=== PATIENT | female | born 1960 | race Caucasian/White ===

== ENCOUNTER 2017-08-25 16:00 | Inpatient (IN) | payer BC ==
[~2017-08-25] VITALS: Ht 162.6 cm; Wt 56.0 kg
[2017-08-25] VITALS (13 sets, daily range): BP systolic 130–198; BP diastolic 88–116; PULSE 77–97; RESP 16–19; TEMP 97.6–98; O2SAT 97–100
[~2017-08-25 16:00] MED LIST: ATOR20TA42 PO; CETI5TAB2 PO; ESTR1TAB12 PO; LEVO.1 PO; TRIA3AER; ZANT150T2 PO
[2017-08-25] MEDS ORDERED: LEVO.1 PO (16:09)
[2017-08-25] MEDS ORDERED: CETI-1 PO (16:13)
[2017-08-25] MEDS ORDERED: HEPARIN SODIUM - IV 10,000 UNITS/10 ML VIAL IV PUSH STA (16:18)
[2017-08-25] MEDS ORDERED: FAMOTIDINE 20 MG/2 ML VIAL ONE (16:24)
[2017-08-25] MEDS ORDERED: NITROGLYCERIN INJ 5 ML ONE (16:24)
[2017-08-25] MEDS ORDERED: HYDROCORTISONE SOD SUCCINATE 100 MG VIAL ONE (16:24)
[2017-08-25] MEDS ORDERED: HEPARIN SODIUM - IV 10,000 UNITS/10 ML VIAL ONE (16:24)
[2017-08-25] MEDS ORDERED: MIDAZOLAM HCL 2 MG/2 ML VIAL ONE (16:24)
[2017-08-25] MEDS ORDERED: HEPARIN-NS/PF FLUSH BAG 2,000 ML IV FLUSH ONE (16:24)
[2017-08-25] MEDS ORDERED: diphenhydrAMINE HCL 50 MG/ML VIAL ONE (16:24)
--- NOTE | 2017-08-25 16:25 | PD ---
HPI Chief Complaint: Cardiac Time Seen by Provider: 16:20 Travel History International Travel<30 days: No Contact w/Intl Traveler<30days: No Traveled to known affect area: No History of Present Illness HPI 51 cc of female complains of chest pain. Patient states the pain started about 2 hours prior to arrival. Patient states that she had intermittent left-sided chest pain for the past week. Patient states the chest pain used to last about 15 minutes and then resolved completely. Patient states of chest pain associated with exertion. Patient denies history hypertension diabetes. Patient has a history of hyperlipidemia.. Patient is a non-smoker. Patient has family history of heart disease. On a scale from 1-10 the pain is an 8. Patient states pain is a pressure pain substernal and left-sided chest with radiation to left arm left shoulder. Patient states that she had nausea with the chest pain. Patient denies any diaphoresis. PFSH Past Medical History Arthritis: No Asthma: No Autoimmune Disease: No Blood Disorders: No Cancer: No Cardiovascular Problems: No COPD: No Cerebrovascular Accident: No Diabetes: No Endocrine: Yes GERD: Yes Genitourinary: No Headaches: No Hepatitis: No Hiatal Hernia: No Immune Disorder: No Musculoskeletal: No Neurologic: No Psychiatric: No Reproductive: Yes (OVARIAN CYST, RIGHT & ADHESIONS ) Respiratory: No Seizures: No Sleep Apnea: No Thyroid Disease: Yes ( HYPOTHYROID ) Ulcer: No Past Surgical History Abdominal Surgery: Yes (LAP CHOLECY) AICD: No Body Medical Devices: NONE Cardiac Surgery: No Ear Surgery: No Endocrine Surgery: No Eye Surgery: No Genitourinary Surgery: No Gynecologic Surgery: Yes (C SECTION X 1, UTERUS REMOVED) Joint Replacement: No Oral Surgery: No Pacemaker: No Thoracic Surgery: No Social History Alcohol Use: No Tobacco Use: Yes (one pack a day) Substance Use: No Allergies-Medications (Allergen,Severity, Reaction): Coded Allergies: shellfish derived (Verified Allergy, Severe, HIVES, 08/25/17) Sulfa (Sulfonamide Antibiotics) (Verified Allergy, Intermediate, Rash, ) FEVER/VOMITTING nitrofurantoin (Verified Allergy, Intermediate, HIVES, 08/25/17) onion (Verified Allergy, Intermediate, HIVES, 08/25/17) Reported Meds & Prescriptions Reported Meds & Active Scripts Active Reported Zyrtec (Cetirizine HCl) 10 Mg Tablet 10 Mg PO HS Synthroid (Levothyroxine Sodium) 100 Mcg Tab 100 Mcg PO DAILY Review of Systems General / Constitutional: No: Fever Eyes: No: Visual changes HENT: No: Headaches Cardiovascular: Positive: Chest Pain or Discomfort Respiratory: No: Shortness of Breath Gastrointestinal: No: Abdominal Pain Genitourinary: No: Dysuria Musculoskeletal: No: Pain Skin: No Rash Neurologic: No: Weakness Psychiatric: No: Depression Endocrine: No: Polydipsia Hematologic/Lymphatic: No: Easy Bruising Physical Exam Narrative GENERAL: Well-nourished, well-developed patient. SKIN: Focused skin assessment warm/dry. HEAD: Normocephalic. EYES: No scleral icterus. No injection or drainage. NECK: Supple, trachea midline. No JVD or lymphadenopathy. CARDIOVASCULAR: Regular rate and rhythm without murmurs, gallops, or rubs. RESPIRATORY: Breath sounds equal bilaterally. No accessory muscle use. GASTROINTESTINAL: Abdomen soft, non-tender, nondistended. MUSCULOSKELETAL: No cyanosis, or edema. BACK: Nontender without obvious deformity. No CVA tenderness. Neurologic exam normal. Data Data Orders Orders Electrocardiogram (08/25/17 ) Electrocardiogram (08/25/17 16:16) Basic Metabolic Panel (Bmp) (08/25/17 16:16) Ckmb (Isoenzyme) Profile (08/25/17 16:16) Complete Blood Count With Diff (08/25/17 16:16) Magnesium (Mg) (08/25/17 16:16) Prothrombin Time / Inr (Pt) (08/25/17 16:16) Act Partial Throm Time (Ptt) (08/25/17 16:16) Troponin I (08/25/17 16:16) Chest, Single Ap (08/25/17 16:16) Ecg Monitoring (08/25/17 16:16) Bilateral Bp Monitoring (08/25/17 16:16) Iv Access Insert/Monitor (08/25/17 16:16) Oximetry (08/25/17 16:16) Oxygen Administration (08/25/17 16:16) Aspirin Chew (Aspirin Chew) (08/25/17 16:30) Sodium Chloride 0.9% Flush (Ns Flush) (08/25/17 16:30) Nitroglycerin Sl (Nitrostat Sl) (08/25/17 16:30) [facility] Medical Decision Making Medical Screen Exam Complete: Yes Emergency Medical Condition: Yes Interpretation(s) EKG shows sinus rhythm with ST elevation anterior lateral leads. ST depression in inferior leads. Differential Diagnosis Differential diagnosis including STEMI. Narrative Course 57 years old female with chest pain. EKG typical STEMI. STEMI was called. I spoke with Dr. Ray. Patient will be taken to Patient Intake Representative immediately. Heparin bolus given. Aspirin given. Nitropaste given. Diagnosis Primary Impression: STEMI (ST elevation myocardial infarction) Qualified Codes: I21.02 - ST elevation (STEMI) myocardial infarction involving left anterior descending coronary artery Admitting Information Admitting Physician Requests: Admit Terence Mendoza MD Aug 25, 2017 16:25
--- NOTE | 2017-08-25 16:25 | PD ---
HPI Chief Complaint: Chest pain Time Seen by Provider: 16:08 Travel History International Travel<30 days: No Contact w/Intl Traveler<30days: No Traveled to known affect area: No History of Present Illness HPI 57-year-old female smoker with history of hypothyroidism hyperlipidemia presents for evaluation of chest pain. Symptoms have been intermittent for the past week. Initially she thought that the symptoms were secondary to stress related to her mother recently having a TIA. Symptoms typically last 15 minutes at a time and then resolved. She has had more consistent pain since 2: 30 PM today which prompted evaluation. She describes it as a substernal burning sensation which radiates in the left arm with associated nausea, vomiting. She denies cough, congestion, shortness of breath, abdominal pain, recent illness. No known history of coronary artery disease. Primary care physician is Dr. Sharif Spicer. No other complaints. PFSH Past Medical History Arthritis: No Asthma: No Autoimmune Disease: No Blood Disorders: No Cancer: No Cardiovascular Problems: No COPD: No Cerebrovascular Accident: No Diabetes: No Endocrine: Yes GERD: Yes Genitourinary: No Headaches: No Hepatitis: No Hiatal Hernia: No Immune Disorder: No Musculoskeletal: No Neurologic: No Psychiatric: No Reproductive: Yes (OVARIAN CYST, RIGHT & ADHESIONS ) Respiratory: No Seizures: No Sleep Apnea: No Thyroid Disease: Yes ( HYPOTHYROID ) Ulcer: No Past Surgical History Abdominal Surgery: Yes (LAP CHOLECY) AICD: No Body Medical Devices: NONE Cardiac Surgery: No Ear Surgery: No Endocrine Surgery: No Eye Surgery: No Genitourinary Surgery: No Gynecologic Surgery: Yes (C SECTION X 1, UTERUS REMOVED) Joint Replacement: No Oral Surgery: No Pacemaker: No Thoracic Surgery: No Social History Alcohol Use: No Tobacco Use: Yes (one pack a day) Substance Use: No Allergies-Medications (Allergen,Severity, Reaction): Coded Allergies: Sulfa (Sulfonamide Antibiotics) (Verified Allergy, Intermediate, Rash, ) FEVER/VOMITTING nitrofurantoin (Verified Allergy, Intermediate, HIVES, 08/25/17) onion (Verified Allergy, Intermediate, HIVES, 08/25/17) Reported Meds & Prescriptions Reported Meds & Active Scripts Active Reported Zyrtec (Cetirizine HCl) 10 Mg Tablet 10 Mg PO HS Synthroid (Levothyroxine Sodium) 100 Mcg Tab 100 Mcg PO DAILY Review of Systems Except as stated in HPI: all other systems reviewed are Neg Physical Exam Narrative GENERAL: This is a well-developed well-nourished female who appears anxious. She is hypertensive. SKIN: Warm and dry. HEAD: Atraumatic. Normocephalic. EYES: Pupils equal and round. No scleral icterus. No injection or drainage. ENT: No nasal bleeding or discharge. Mucous membranes pink and moist. NECK: Trachea midline. No JVD. CARDIOVASCULAR: Regular rate and rhythm. No murmur appreciated. RESPIRATORY: No accessory muscle use. Clear to auscultation. Breath sounds equal bilaterally. GASTROINTESTINAL: Abdomen soft, non-tender, nondistended. Hepatic and splenic margins not palpable. MUSCULOSKELETAL: No obvious deformities. No clubbing. No cyanosis. No edema. NEUROLOGICAL: Awake and alert. No obvious cranial nerve deficits. Motor grossly within normal limits. Normal speech. PSYCHIATRIC: Appropriate mood and affect; insight and judgment normal. Data Data Last Documented VS Vital Signs Date Time Temp Pulse Resp B/P (MAP) Pulse Ox O2 Delivery O2 Flow Rate FiO2 08/25/17 16:26 100 2.00 08/25/17 16:17 96 18 187/113 (137) Nasal Cannula 198/116 (143) 08/25/17 16:07 97.8 Orders Orders Electrocardiogram (08/25/17 ) Electrocardiogram (08/25/17 16:16) Basic Metabolic Panel (Bmp) (08/25/17 16:16) Ckmb (Isoenzyme) Profile (08/25/17 16:16) Complete Blood Count With Diff (08/25/17 16:16) Magnesium (Mg) (08/25/17 16:16) Prothrombin Time / Inr (Pt) (08/25/17 16:16) Act Partial Throm Time (Ptt) (08/25/17 16:16) Troponin I (08/25/17 16:16) Chest, Single Ap (08/25/17 16:16) Ecg Monitoring (08/25/17 16:16) Bilateral Bp Monitoring (08/25/17 16:16) Iv Access Insert/Monitor (08/25/17 16:16) Oximetry (08/25/17 16:16) Oxygen Administration (08/25/17 16:16) Aspirin Chew (Aspirin Chew) (08/25/17 16:30) Sodium Chloride 0.9% Flush (Ns Flush) (08/25/17 16:30) Nitroglycerin Sl (Nitrostat Sl) (08/25/17 16:30) I-Stat Profile (08/25/17 16:18) I-Stat Creatinine (08/25/17 16:18) Metoprolol Tartrate Inj (Lopressor Inj) (08/25/17 16:30) Morphine Inj (Morphine Inj) (08/25/17 16:30) Heparin Inj (Heparin Inj) (08/25/17 16:18) Nitroglycerin 2% Oint (Nitroglycerin 2% (08/25/17 16:30) Cardiac Catheterization (08/25/17 ) Heparin-Ns/Pf Flush Bag (Heparin-Ns/Pf F (08/25/17 16:24) Diphenhydramine Inj (Benadryl Inj) (08/25/17 16:24) Midazolam Inj (Versed Inj) (08/25/17 16:24) Fentanyl Inj (Fentanyl Inj) (08/25/17 16:24) Hydrocortisone Inj (Solucortef Inj) (08/25/17 16:24) Heparin Inj (Heparin Inj) (08/25/17 16:24) Nitroglycerin Inj (Nitroglycerin Inj) (08/25/17 16:24) Famotidine Inj (Pepcid Inj) (08/25/17 16:24) Admit Order (Ed Use Only) (08/25/17 16:25) CKMB (08/25/17 16:20) CKMB% (08/25/17 16:20) Labs Laboratory Tests Test 08/25/17 16:20 White Blood Count 10.0 TH/MM3 Red Blood Count 4.77 MIL/MM3 Hemoglobin 14.2 GM/DL Bedside Hemoglobin 13.3 G/DL Hematocrit 41.5 % Bedside Hematocrit 39.0 % Mean Corpuscular Volume 87.0 FL Mean Corpuscular Hemoglobin 29.7 PG Mean Corpuscular Hemoglobin Concent 34.1 % Red Cell Distribution Width 12.7 % Platelet Count 313 TH/MM3 Mean Platelet Volume 8.2 FL Neutrophils (%) (Auto) 58.2 % Lymphocytes (%) (Auto) 30.1 % Monocytes (%) (Auto) 8.3 % Eosinophils (%) (Auto) 3.1 % Basophils (%) (Auto) 0.3 % Neutrophils # (Auto) 5.8 TH/MM3 Lymphocytes # (Auto) 3.0 TH/MM3 Monocytes # (Auto) 0.8 TH/MM3 Eosinophils # (Auto) 0.3 TH/MM3 Basophils # (Auto) 0.0 TH/MM3 CBC Comment DIFF FINAL Differential Comment Prothrombin Time 10.7 SEC Prothromb Time International Ratio 1.1 RATIO Activated Partial Thromboplast Time 24.3 SEC Bedside Sodium 137 MMOL/L Blood Urea Nitrogen 10 MG/DL Creatinine 0.93 MG/DL Random Glucose 160 MG/DL Calcium Level 9.3 MG/DL Magnesium Level 2.4 MG/DL Sodium Level 138 MEQ/L Potassium Level 3.3 MEQ/L Chloride Level 106 MEQ/L Carbon Dioxide Level 20.6 MEQ/L Bedside Potassium 3.3 MMOL/L Bedside Chloride 105 MMOL/L Anion Gap 11 MEQ/L Bedside Blood Urea Nitrogen 11 MG/DL Bedside Creatinine 0.9 MG/DL Estimat Glomerular Filtration Rate 62 ML/MIN Bedside Glucose 163 MG/DL Total Creatine Kinase 136 U/L Creatine Kinase MB 4.3 NG/ML Troponin I 0.28 NG/ML [facility] Medical Decision Making Medical Screen Exam Complete: Yes Emergency Medical Condition: Yes Medical Record Reviewed: Yes Differential Diagnosis Acute coronary syndrome, angina, gastritis, pericarditis, myocarditis, aortic dissection, pulmonary embolism Narrative Course Patient was placed on ECG monitoring pulse oximetry. A 12-lead EKG was obtained revealing sinus rhythm with ST elevations in V1 through V5 with ST depression noted in leads III and aVF. STEMI alert was called by Dr. Mendoza. The patient was given 60 mg/kg heparin bolus, full dose aspirin, morphine, nitroglycerin paste, metoprolol for hypertension. Dr. Mendoza spoke with Dr. Rich who will take the patient to Managing Supervisor. Diagnosis Primary Impression: STEMI (ST elevation myocardial infarction) Admitting Information Admitting Physician Requests: Admit Harsh Mnedoza Aug 25, 2017 16:25
[2017-08-25] MEDS: METOPROLOL TARTRATE 5 MG/5 ML VIAL IV PUSH SCH ×3 (16:27→16:40)
[2017-08-25] MEDS ORDERED: LIDOCAINE HCL 1% PF 30 ML VIAL ONE (16:29)
[2017-08-25] MEDS ORDERED: SODIUM CHLORIDE 0.9% FLUSH 10 ML FLUSH IVF PRN (16:30)
[2017-08-25] MEDS ORDERED: NITROGLYCERIN 2% OINT 1 GM PACKET TOP ONE (16:30)
[2017-08-25] MEDS ORDERED: NITROGLYCERIN 0.4 MG SL 25 TABS/BTL SL SCH (16:30)
[2017-08-25] MEDS ORDERED: ASPIRIN 81 MG CHEW TAB PO ONE (16:30)
[2017-08-25] MEDS ORDERED: MORPHINE SULFATE 4 MG/ML INJ IV PUSH ONE (16:30)
[2017-08-25] MEDS ORDERED: CANGRELOR TETRASODIUM 50,000 MCG VIAL ONE (16:38)
--- NOTE | 2017-08-25 16:39 | RADRPT ---
EXAM DATE/TIME: 08/25/2017 16:22 [facility] COMPARISON: No previous studies available for comparison. INDICATIONS : Stemi alert.Chest pain, left arm numbness MEDICAL HISTORY : None. SURGICAL HISTORY : None. ENCOUNTER: Initial ACUITY: 1 day PAIN SCORE: 10/10 LOCATION: Bilateral chest FINDINGS: The heart is normal in size and appearance. The pulmonary vascular pattern is normal. Left basilar st reakiness is noted consistent with probable atelectasis. CONCLUSION: Probable left basilar atelectasis. Sunny Delatorre MD on August 25, 2017 at 16:35 Board Certified Radiologist. This report was verified electronically.
[2017-08-25 16:42] LABS: AUTOMATED NEUTROPHIL # 5.8 TH/MM3 (1.8-7.7); BASOPHIL % 0.3 % (0.0-2.0); EOSINOPHIL # 0.3 TH/MM3 (0-0.4); EOSINOPHIL % 3.1 % (0.0-4.0); HEMATOCRIT 41.5 % (35.0-46.0); HEMOGLOBIN 14.2 GM/DL (11.6-15.3); LYMPH % 30.1 % (9.0-44.0); MEAN CORPUSCULAR HEMOGLOBIN 29.7 PG (27.0-34.0); MEAN CORPUSCULAR HGB CONC 34.1 % (32.0-36.0); MEAN PLATELET VOLUME 8.2 FL (7.0-11.0); MONO % 8.3 % (0.0-8.0); MONOCYTE # 0.8 TH/MM3 (0-0.9); NEUT % 58.2 % (16.0-70.0); PLATELET COUNT 313 TH/MM3 (150-450); RED BLOOD COUNT 4.77 MIL/MM3 (4.00-5.30); RED CELL DISTRIBUTION WIDTH 12.7 % (11.6-17.2)
[2017-08-25 16:56] LABS: INTERNATIONAL NORMALIZED RATIO 1.1 RATIO; PROTHROMBIN TIME - PATIENT 10.7 SEC (9.8-11.6)
[2017-08-25] MEDS ORDERED: TICAGRELOR 90 MG TAB PO ONE (16:59)
[2017-08-25 17:09] LABS: BICARBONATE 20.6 MEQ/L (21.0-32.0); BLOOD UREA NITROGEN 10 MG/DL (7-18); CALCIUM 9.3 MG/DL (8.5-10.1); CHLORIDE 106 MEQ/L (98-107); CREATININE 0.93 MG/DL (0.50-1.00); GLOMERULAR FILTRATION RATE 62 ML/MIN (>89); GLUCOSE,RANDOM 160 MG/DL (74-106); MAGNESIUM 2.4 MG/DL (1.5-2.5); SODIUM (NA) 138 MEQ/L (136-145); TROPONIN I 0.28 NG/ML (0.02-0.05)
--- NOTE | 2017-08-25 17:11 | CATHPROC ---
[employer] HIS Report Study Information Study Number Admission Scheduled Start Study Start [id number] Aug 25 2017 4:00PM 08/25/2017 Aug 25 2017 4:25PM [place] [facility] Cardiac Catheterization Admit Source Facility Department Emergency department [facility] - Blind Teacher Physician and Clinical Staff Initial Elvis Rai Nurse ExaminerLarisa Cid,[place] Nurse Examiner All Casas RN Other Hesher, Sharon,[place] Recorder Alexa Murphy,RT(R) Scrub Ryan JamisonRT(R) Procedures Performed Procedure Location (Site) Vessel Name Coronary Angiograms LCA Left Coronary Coronary Angiograms RCA Right Coronary Coronary Angiograms LAD Mid Left Coronary Drug Eluting Inflatio LAD Mid Left Coronary Drug Eluting Inflatio LAD Prox Left Coronary PTCA LAD Mid Left Coronary PTCA ADD ON'S Wire insertion Radial (right) Radial Art. Equipment Time Cloud Security Architect Description Size Mfg Part Number Used/Scraped TRANSDUCER, TRUWAVE [id number] 16:28 CAZARES ALEXANDER * Used W/STOCKCOCK *[id number] [phone] *[id number] *[id number] 16:28 [employer]cat INDUSTRIES PACK, CCL CUSTOM * Used *[id number] 16:28 Jascha SUPPORT, ARTERIAL ADULT [id number] *[id number] Used [id number] 16:28 [employer]cat PACER PEN, SKIN DUAL W/ RULER * Used *[id number] 16:45 MEDTRONIC BALLOON, 2.0 X 15MM EUPHORA 15MM Used *[id number] 16:48 MEDTRONIC BALLOON, 2.0 X 15MM EUPHORA 15MM Used *[id number] 16:56 MEDTRONIC STENT, 2.5 18MM NELSON 2.5 18MM Used *[id number] 16:53 MEDTRONIC STENT, 2.5 38MM NELSON 2.5 38MM [id number] Used [id number] 16:47 [employer] MEDICAL 30 JUSTO INDEFLATOR Used *[id number] BAND, RADIAL COMPRESSION TR [id number] 17:00 [employer] MEDICAL 24CM Used SHORT 24 *[id number] SHEATH, FR6 RADIAL PRELUDE 16:28 upad FR 6 [id number] Used EASE 11CM [id number] 16:28 upad WIRE, EXCHANGE 260CM 3MMJ 260CM Used *[id number] 16:48 NYCOMED OMNIPAQUE, 300 MG, 50ML 50ML [id number] Used 16:28 NYCOMED OMNIPAQUE, 350 MG, 150ML 150ML [id number] Used [id number] 16:28 [employer],WARM AIR CCL * Used *[id number] WIRE, RUNTHROUGH NS FLOPPY [id number] 16:48 [employer] MEDICAL 180CM Used .014 180CM *[id number] Equipment Model, Serial, Lot Number and Expiration Data Description Model Number Serial Number Lot Number Expiration Date BALLOON, 2.0 X 15MM EUPHORA [id number] 09-07-2018 STENT, 2.5 18MM NELSON [id number] 03-22-2019 STENT, 2.5 38MM NELSON [id number] 06-09-2019 History: Current Medications Medication Dosage/Unit Route Frequency Last Date/Time Taken HEPARIN ASA BRILLINTA History: Allergies Allergy Reaction Sulfa (Sulfonamide Antibiotics) Rash nitrofurantoin HIVES onion HIVES shellfish derived HIVES History: Risk Factors Family History of Hypertension Dyslipidemia Previous [place] Previous Heart Failure Premature CAD Yes No No No No Prior Valve Prior PCI Prior CABG Surgery No No No Cerebrovascular Peripheral Artery Chronic Lung On Dialysis Diabetes Disease Disease Disease No No No No No History: Symptoms/Diagnosis Selection Items Chest pain History: Stress Tests Stress or Imaging Studies Performed No History: Other Disease Selection Items HTN History: Other Current Smoker Method Yes Cigarettes Labs Hgb (g/dl) Hct (%) 11.60-17.00 35.00-51.00 13.3 39 Glucose (mg/dl) BUN (mg/dl) Creatinine (mg/dl) BUN:Creatinine (1:x) 74.00-106.00 7.00-18.00 0.50-1.30 10.00-20.00 164 11 0.9 12.2 Na (meq/l) K (meq/l) 136.00-145.00 3.50-5.10 137 3.3 CPK-MB (ng/ML) 0.50-3.60 Not Drawn Medication Medication Total Dose (Bolus/Oral) Medication Total Dosage/Unit 1% XYLOCAINE 20 mL BENADRYL 50 mg BRILLINTA 180 mg FENTANYL 50 mcg HEPARIN 2000 units PEPCID 20 mg RADIAL COCKTAIL 5 mL (Bolus) SOLU-CORTEF 100 mg VERSED 2 mg Medications (Bolus/Oral) Medication Time Given Dosage/Unit Administered By Reason BENADRYL 08/25/2017 4:35:40 PM 50 mg Yessenia, All 50 mg BENADRYL given in lab by All Casas RN in Left Wrist via Peripheral IV. PEPCID 08/25/2017 4:36:00 PM 20 mg Alexa Cooper 20 mg PEPCID given in lab by Alexa Cooper RN via Peripheral IV. SOLU-CORTEF 08/25/2017 4:37:00 PM 100 mg Alexa Cooper 100 mg SOLU-CORTEF given in lab by Alexa Cooper RN via Peripheral IV. VERSED 08/25/2017 4:40:46 PM 2 mg Yessenia, All 2 mg VERSED given in lab by All Casas RN via Peripheral IV. 1% XYLOCAINE 08/25/2017 4:41:24 PM 20 mL Yessenia, All 20 mL 1% XYLOCAINE given in lab by All Casas RN in Right Groin via Subcutaneous. FENTANYL 08/25/2017 4:41:52 PM 50 mcg Yessenia, All 50 mcg FENTANYL given in lab by All Casas RN via Peripheral IV. HEPARIN 08/25/2017 4:42:51 PM 2000 units Alexa Cooper 2000 units HEPARIN given in lab by Alexa Cooper RN via Peripheral IV. RADIAL COCKTAIL 08/25/2017 4:43:05 PM 5 mL (Bolus) Elvis Rich 5 mL (Bolus) RADIAL COCKTAIL given in lab by Elvis Rich via Radial. Using [Solution Name]. nitro 200 BRILLINTA 08/25/2017 5:05:15 PM 180 mg Alexa Cooper 180 mg BRILLINTA given in lab by Alexa Cooper RN in Per mouth via Oral. Medication (Drip) Medication Time Given Dosage/Unit Concentration/Unit Diluent (ml) Solutio n IV Solutions 08/25/2017 4:35:07 PM 0 mL (IV) 1000 NaCl .9 Patient arrived on IV Solutions in Left Wrist via Peripheral IV. Pump/Drip Flow = 30 ml/hr using NaCl .9. KENGREAL BOLUS 08/25/2017 4:48:00 PM 8 mL 8 mL KENGREAL BOLUS given in lab by Alexa Cooper, RN via Peripheral IV. KENGREAL DRIP 08/25/2017 4:50:55 PM 4 mcg/kg/min 50 mg 250 NaCl .9 4 mcg/kg/min KENGREAL DRIP given in lab by Alexa Cooper, RN via Peripheral IV. Pump/Drip Flow = 70. 8 ml/hr using NaCl .9 with a concentration of 50 mg in 250 ml. Initial Case Assessment Cardiovascular HR Rhythm NIBP 84 reg 202/130 Edema Present Skin color Skin None Normal Warm Circulatory - Right Pulses Dorsalis Pedis Femoral Radial 2 3 2 Scale (0,1,2,3,4,d) Scale (0,1,2,3,4,d) Circulatory - Lower Extremities Color Lower Right Normal Neurological State Oriented to time-place- Alert Moves all extremities person Respiration - General Respiration Rate SpO2 (%) O2 (lpm) (B/min) 14 100 2 Final Case Assessment Cardiovascular HR Rhythm NIBP Chest Pain 105 reg 156/103 0 Edema Present Skin color Skin None Normal Warm Circulatory - Right Pulses Dorsalis Pedis Femoral Radial 2 2 2 Scale (0,1,2,3,4,d) Scale (0,1,2,3,4,d) Circulatory - Lower Extremities Color Lower Right Normal Neurological State Oriented to time-place- Alert Moves all extremities person Respiration - General Respiration Rate SpO2 (%) O2 (lpm) (B/min) 15 100 2 Chronological Log Time Study Chronological Log 16:21:30 Emergency Room notified that Blind Teacher is ready. Alexa Murphy spoke directly to Dr Mendoza. 16:34:17 Patient arrived via Bed. 16:34:20 Patient Name, D.O.B, / Armband Verified By R.N. 16:34:21 Consent signed by the physician and the patient and verified by the Blind Teacher staff. 16:34:40 Pre-op and post- op instructions given; patient acknowledges understanding of instructions. 16:34:41 Verbal Stimulation=2 Physical Stimulation=2 Airway=2 Respiration=2 TOTAL=8. (0=absent, 1=li mited, 2=present) 16:34:53 Immediate Presedation assesment performed by physician. 16:35:02 Patient Warmer Placed on the Table. 16:35:03 Disposable Defibrillator Pads Placed On Patient. 16:35:06 Karthik Prominences Protected 16:35:07 A # 20 IV was noted in the Wrist (left). Grade = 0 16:35:07 Patient arrived on IV Solutions in Left Wrist via Peripheral IV. Pump/Drip Flow = 30 ml/hr using NaCl .9. 16:35:08 History and physical on the chart or being dictated. Assessment: Initial Case, HR=84 BPM, Rhythm=reg, QWZO=389/130 mmhg, Edema=None, Color=Normal, S kin = Warm Right Pulses: Devon Ped=2, Femoral=3, Radial=2 16:35:08 Lower Right Extremities: Color=Normal Neurological: State=Alert, Ox3, AVALOS Respiration: Resp=14 B/min, ZxQ7=324 %, O2=2 lpm 16:35:40 50 mg BENADRYL given in lab by All Casas RN in Left Wrist via Peripheral IV. 16:36:00 20 mg PEPCID given in lab by Alexa Cooper RN via Peripheral IV. 16:36:44 A # 20 IV was noted in the Wrist (right). Grade = 0 16:37:00 100 mg SOLU-CORTEF given in lab by Alexa Cooper RN via Peripheral IV. Vitals capture started with the following parameters, Patient=Adult, Interval=5 min, Initial Pr nqbeod=622 mmHg, 16:38:52 Deflation Rate=5 mmHg, Cuff placed on Left Arm 16:39:08 Right Radial and right groin prepped with 2% chlorhexidine, and draped after a 3 min. waiti ng time. 16:40:09 HR=84 bpm, XNJM=224/130 mmhg, XfE7=418.0 %, Resp=23 B/min, Pain=7, Baljinder=10, Chavez=2 16:40:31 Reference ECG taken 16:40:46 2 mg VERSED given in lab by All Casas RN via Peripheral IV. 16:41:21 Case Start Time Out. Correct patient, correct procedure, correct physician, power injector loaded, or not loaded with contrast with 16:41:23 surgical team present. Time Out Concurred by MD and individual staff in procedure. 16:41:24 20 mL 1% XYLOCAINE given in lab by All Casas RN in Right Groin via Subcutaneous. 16:41:52 50 mcg FENTANYL given in lab by All Casas, RN via Peripheral IV. 16:42:14 Pressure channel 1 zeroed. 16:42:30 Access site was Radial Artery. 16:42:39 A wire was inserted via Radial (right). A SHEATH, FR6 RADIAL PRELUDE EASE 11CM FR 6 was advanced into the Radial (right) using the Perc utaneous 16:42:47 technique. 16:42:51 2000 units HEPARIN given in lab by Alexa Cooper, LOLA via Peripheral IV. 16:43:05 5 mL (Bolus) RADIAL COCKTAIL given in lab by Elvis Rich via Radial. Using [Solution Nam e]. nitro 200 A JR 5.0 INFINITI CATHETER FR 5 was advanced over a wire. OMNIPAQUE, 350 MG, 150ML 150ML was us ed for 16:44:24 injections. Recorded Pressure: Ao, HR=91, Condition=Condition 1 16:44:30 (Aorta) Ao 193/120/152 16:44:39 HR=89 bpm, CFAU=460/125 mmhg, SpO2=72.0 %, Resp=14 B/min, Pain=7, Baljinder=10, Chavez=2 16:44:45 The RCA was injected and visualized at various angles. OMNIPAQUE, 350 MG, 150ML 150ML used . 16:45:19 Catheter was removed 16:45:20 A AL 1 GUIDE CATHETER FR 6 was advanced over a wire. OMNIPAQUE, 350 MG, 150ML 150ML was use d for injections. 16:46:35 The LCA was injected and visualized at various angles. OMNIPAQUE, 350 MG, 150ML 150ML used . 16:47:23 OMNIPAQUE, 300 MG, 50ML 50ML and 30 JUSTO INDEFLATOR added. 16:47:42 A WIRE, RUNTHROUGH NS FLOPPY .014 180CM 180CM was inserted via Radial (right). 16:48:00 8 mL KENGREAL BOLUS given in lab by Alexa Cooper, LOLA via Peripheral IV. 16:48:15 Interventional wire has crossed the lesion A BALLOON, 2.0 X 15MM EUPHORA 15MM was inserted over WIRE, RUNTHROUGH NS FLOPPY .014 180CM 180C M via 16:48:26 the LAD Mid. A BALLOON, 2.0 X 15MM EUPHORA 15MM over a WIRE, RUNTHROUGH NS FLOPPY .014 180CM 180CM in the LA D Mid 16:48:44 was inflated using a 30 JUSTO INDEFLATOR at 8 justo for 15 sec. 16:49:17 reperfusion A BALLOON, 2.0 X 15MM EUPHORA 15MM over a WIRE, RUNTHROUGH NS FLOPPY .014 180CM 180CM in the LA D Mid 16:49:35 was inflated using a 30 JUSTO INDEFLATOR at 8 justo for 15 sec. 16:49:36 HR=99 bpm, HDIV=245/102 mmhg, SpO2=73.0 %, Resp=14 B/min, Pain=7, Baljinder=10, Chavez=2 16:50:10 The LCA was injected and visualized at various angles. OMNIPAQUE, 350 MG, 150ML 150ML used . 16:50:34 Balloon Removed. 4 mcg/kg/min KENGREAL DRIP given in lab by Alexa Cooper RN via Peripheral IV. Pump/Drip Flow = 70.8 ml/hr 16:50:55 using NaCl .9 with a concentration of 50 mg in 250 ml. A STENT, 2.5 38MM NELSON 2.5 38MM was advanced through a AL 1 GUIDE CATHETER FR 6 over a WIRE, 16:51:44 RUNTHROUGH NS FLOPPY .014 180CM 180CM. A STENT, 2.5 38MM NELSON 2.5 38MM was deployed using a 30 JUSTO INDEFLATOR at 16 atmospheres for 2 0 seconds in 16:52:51 the LAD Mid. 16:54:05 The LAD Mid was injected and visualized at various angles. OMNIPAQUE, 350 MG, 150ML 150ML used. 16:54:31 HR=97 bpm, QOVN=015/106 mmhg, RzE1=320.0 %, Resp=13 B/min, Pain=7, Baljinder=10, Chavez=2 16:55:21 Delivery device removed A STENT, 2.5 18MM NELSON 2.5 18MM was advanced through a AL 1 GUIDE CATHETER FR 6 over a WIRE, R UNTHROUGH 16:55:31 NS FLOPPY .014 180CM 180CM. A STENT, 2.5 18MM NELSON 2.5 18MM was deployed using a 30 JUSTO INDEFLATOR at 16 atmospheres for 1 5 seconds in 16:56:57 the LAD Prox. 16:58:10 Delivery device removed 16:58:14 The LCA was injected and visualized at various angles. OMNIPAQUE, 350 MG, 150ML 150ML use d. 16:58:52 Wire removed 16:58:54 Catheter was removed Assessment: Final Case, QP=989 BPM, Rhythm=reg, LMUF=049/103 mmhg, Chest Pain=0, Edema=None, Color=Normal, Skin = Warm Right Pulses: Devon Ped=2, Femoral=2, Radial=2 16:58:57 Lower Right Extremities: Color=Normal Neurological: State=Alert, Ox3, AVALOS Respiration: Resp=15 B/min, YnR3=437 %, O2=2 lpm 16:59:30 WE=014 bpm, UPFX=342/103 mmhg, NtV3=652.0 %, Resp=20 B/min, Pain=7, Baljinder=10, Chavez=2 16:59:46 Catheter(s) removed without difficulty 17:00:17 Case End Radial Compression Device Used. 13 mLs of air placed in BAND, RADIAL COMPRESSION TR SHORT 24 2 4CM. Affected 17:04:00 hand 100 % O2 saturation. 17:04:29 PH=915 bpm, LTLC=312/111 mmhg, RlV1=939.0 %, Resp=13 B/min, Pain=7, Baljinder=10, Chavez=2 17:05:15 180 mg BRILLINTA given in lab by Alexa Cooper, RN in Per mouth via Oral. 17:08:19 ACT (Normal Range 90-180) = 291 17:09:13 Vitals capture stopped. End Study - Contrast Media Used In Study Contrast Total Opened (mL) Total Used (mL) Total Wasted (mL) Omnipaque 70 70 0 End Study - Maximum Contrast Load Max Contrast Load (mL) 327.8 End Study - Radiation Exposure Fluoro Time (minutes) 2.6 End Study - Sheaths Sheaths Pulled By Sheath Hold Time (min) Ryan Jamison End Study - Patient Disposition Complications Transferred To Interventional Outcome No Critical Care Bed successful
[2017-08-25] MEDS ORDERED: BACITRACIN OINT 0.9 GM PKT TOP ONE (17:15)
[2017-08-25] MEDS ORDERED: CANGRELOR INJ 50,000 MCG in SODIUM CHLOR 0.9% 250 ML INJ 250 ML IV ONE (17:15)
[2017-08-25] MEDS ORDERED: MISC INFORMATION XX ONE (17:15)
[2017-08-25] MEDS ORDERED: PILL SPLITTER OTHER PRN (17:15)
[2017-08-25] MEDS ORDERED: LIDOCAINE 2% JELLY 30 ML TUBE TOP PRN (17:15)
[2017-08-25] MEDS ORDERED: ONDANSETRON HCL 4 MG/2 ML VIAL IVP PRN (17:15)
[2017-08-25] MEDS ORDERED: IOHEXOL 350 MG/ML 100 ML BTL (for Cath Lab) OTHER ONE (17:15)
--- NOTE | 2017-08-25 17:52 | MB ---
cc: Elvis Rich MD DATE: 08/25/2017 INDICATION FOR CONSULTATION: ST elevation myocardial infarction. HISTORY OF PRESENT ILLNESS: This is a 57-year-old female who presents with symptoms of chest pain, acute onset. She has no prior history of known heart disease. He does have a history of smoking. Her coworker brought her in. She was found to have ST elevation anteriorly. She was still having ongoing substernal chest pain with radiation to the arm, associated with diaphoresis and shortness of breath. ST elevation [place] protocol was initiated. PAST MEDICAL AND SURGICAL HISTORY: Ovarian cyst, hypothyroidism, prior laparoscopic cholecystectomy and . SOCIAL HISTORY: She does smoke a pack a day. ALLERGIES: SHELLFISH, SULFA, NITROFURANTOIN AND ONIONS. REPORTED MEDICATIONS: Zyrtec and Synthroid. REVIEW OF SYSTEMS: A 12-point review of systems was performed, negative unless otherwise noted in history of present illness. PHYSICAL EXAMINATION: VITAL SIGNS: Temperature 97, pulse 82, blood pressure 180/100 mmHg. GENERAL: Alert and oriented x 3, in moderate distress. HEENT: Shows pupils reactive to light and accomodation. Extraocular movements are intact. NECK: No elevation of jugular venous distention. No thyromegaly or lymphadenopathy. No carotid bruit. LUNGS: Clear to auscultation bilaterally. CARDIOVASCULAR: Regular rate and rhythm without murmurs, rubs or gallops. ABDOMEN: Nontender, nondistended. Good bowel sounds. No hepatosplenomegaly. EXTREMITIES: Show no clubbing, cyanosis or edema. Good peripheral pulses. NEUROLOGIC: Cranial nerves intact. Motor, sensory grossly intact. LABORATORY DATA: WBC 10.0, hemoglobin is 14.2, platelet count is 313. INR is 1.1. Sodium 137, potassium 3.3, BUN 11, creatinine 0.9. ASSESSMENT: 1. ST elevation myocardial infarction. 2. Hypertension. PLAN: Given the acute symptoms, EKG changes, she will be brought emergently to the cardiac catheterization lab for attempted revascularization. Risks, benefits, and alternatives have been discussed with the patient. She has understood and consented to the procedure. Elvis Rich MD CHRISTINA/KD , 05:13 PM , 05:51 PM
[2017-08-25] MEDS: LISINOPRIL 10 MG TAB PO SCH (18:18)
[2017-08-25] MEDS ORDERED: TEMAZEPAM 15 MG CAP PO PRN (21:00)
[2017-08-25] MEDS: CETIRIZINE HCL 10 MG TAB PO SCH (21:14)
[2017-08-25] MEDS: ATORVASTATIN 40 MG TAB PO SCH (21:14)
[2017-08-25] MEDS: METOPROLOL TARTRATE 25 MG TAB PO SCH (21:16)
--- NOTE | 2017-08-25 21:52 | MA ---
cc: Elvis Rich MD, Stephen E MD DATE: 08/25/2017 INDICATION: ST elevation [place]. PROCEDURES PERFORMED: 1. Fluoroscopy with interpretation 2. Coronary angiography. 3. Percutaneous intervention with drug-eluting stents to the proximal and mid left anterior descending coronary artery. METHODS: Risks, benefits, and alternatives discussed with the patient, patient understood and consented to it. DESCRIPTION OF PROCEDURE: The patient was brought to the catheterization lab, placed on catheterization table. The right wrist was prepped and draped in a sterile fashion. The right wrist was anesthetized with 2% lidocaine. The right radial artery was cannulated. A 6-Slovenian 7 cm sheath was placed without difficulty. CORONARY ANGIOGRAPHY: 1. Left main coronary artery is angiographically normal. 2. Left anterior descending coronary has 90% proximal stenosis and is occluded in the mid segment. Several small diagonal branches are patent proximally. 3. Left circumflex has a very small ramus intermedius branch with 50% diffuse proximal stenosis. The circumflex is a small to moderate size, has a 75% proximal stenosis. The remainder of the vessel has has mild irregularities. 4. Right coronary artery is tortuous. The mid to distal segment appears to be a 75% stenosis just prior to the posterior descending posterolateral branches. PERCUTANEOUS INTERVENTION: Given the acute thrombotic occlusion with ongoing symptoms, we elected to proceed with attempted revascularization. A 6-Slovenian AL-1 guide catheter was advanced to the left main and heparin and cangrelor was administered through the entire procedure to maintain appropriate anticoagulation. A 0.014 x 180 cm Terumo Runthrough wire was navigated down the distal left anterior descending coronary without difficulty. A 2.0 x 15 mm RX Euphora balloon was advanced into the mid segment of the left anterior descending coronary and deployed at 2 sequential inflations. Repeat angiography showed methodist of SHAHBAZ 3 flow, but still severe residual stenosis. A 2.5 x 38 mm RX Resolute [place] drug-eluting stent was advanced to the mid segment and deployed. A 2.5 x 18 mm RX Resolute Julio César was deployed in the proximal segment with minimal stent overlap. Repeat angiography showed no residual stenosis, SHAHBAZ 3 flow. Guide catheter removed and HemoBand applied. CONCLUSIONS: 1. Acutely thrombotic left anterior descending coronary occlusion. 2. Successful percutaneous intervention with drug-eluting stents in the proximal and mid segment of the left anterior descending coronary artery. PLAN: The patient will be monitored closely for any post-procedure complication. Hopefully, she will make a quick recovery. We will have to discuss potential staging for the circumflex and right coronary arteries. They are rather short tubular stenosis and approachable percutaneously, but we may allow her to make a full recovery prior to planned intervention. We will initiate aspirin, Brilinta, beta ania, and statin therapy. We will check a 2-D echocardiogram. MD CHRISTINA Clemons/SA/ , 05:10 PM , 05:34 PM
[2017-08-25] MEDS ORDERED: hydrALAZINE HCL 25 MG TAB PO PRN (22:00)
[2017-08-26] VITALS (30 sets, daily range): BP systolic 112–170; BP diastolic 76–119; PULSE 70–107; RESP 14–20; TEMP 97.6–98.4; O2SAT 95–98
[2017-08-26] MEDS: cloNIDine HCL 0.1 MG TAB PO PRN (02:07)
[2017-08-26] MEDS ORDERED: NITROGLYCERIN 0.4 MG SL 25 TABS/BTL SL ONE ×2 (02:26→02:27)
[2017-08-26] MEDS: NITROGLYCERIN 0.4 MG SL 25 TABS/BTL SL PRN ×3 (02:30→02:43)
[2017-08-26 05:27] LABS: AUTOMATED NEUTROPHIL # 7.1 TH/MM3 (1.8-7.7); BASOPHIL # 0.1 TH/MM3 (0-0.2); BASOPHIL % 0.6 % (0.0-2.0); EOSINOPHIL # 0.1 TH/MM3 (0-0.4); EOSINOPHIL % 1.1 % (0.0-4.0); HEMATOCRIT 35.8 % (35.0-46.0); HEMOGLOBIN 12.3 GM/DL (11.6-15.3); LYMPH % 23.8 % (9.0-44.0); LYMPHOCYTE # 2.6 TH/MM3 (1.0-4.8); MEAN CELL VOLUME 87.2 FL (80.0-100.0); MEAN CORPUSCULAR HEMOGLOBIN 30.1 PG (27.0-34.0); MEAN CORPUSCULAR HGB CONC 34.5 % (32.0-36.0); MEAN PLATELET VOLUME 8.8 FL (7.0-11.0); MONO % 8.8 % (0.0-8.0); NEUT % 65.7 % (16.0-70.0); PLATELET COUNT 244 TH/MM3 (150-450); RED CELL DISTRIBUTION WIDTH 12.6 % (11.6-17.2); WHITE BLOOD COUNT 10.8 TH/MM3 (4.0-11.0)
[2017-08-26 05:48] LABS: BICARBONATE 23.2 MEQ/L (21.0-32.0); CALCIUM 8.8 MG/DL (8.5-10.1)
[2017-08-26 05:49] LABS: CREATININE 0.69 MG/DL (0.50-1.00)
[2017-08-26] MEDS ORDERED: LEVOTHYROXINE SODIUM 100 MCG TAB PO SCH (06:00)
[2017-08-26 06:03] LABS: CHOLESTEROL/ HDL RATIO 6.66 RATIO; HDL CHOLESTEROL 36.6 MG/DL (40.0-60.0)
[2017-08-26] MEDS: ASPIRIN 81 MG CHEW TAB PO SCH (08:00)
[2017-08-26] MEDS: METOPROLOL TARTRATE 25 MG TAB PO SCH ×2 (08:00→21:25)
[2017-08-26] MEDS: LISINOPRIL 10 MG TAB PO SCH (08:00)
[2017-08-26] MEDS: TICAGRELOR 90 MG TAB PO SCH ×2 (08:01→21:25)
[2017-08-26] MEDS ORDERED: FAMOTIDINE 20 MG/2 ML VIAL ONE (08:12)
[2017-08-26] MEDS ORDERED: HEPARIN-NS/PF FLUSH BAG 2,000 ML IV FLUSH ONE (08:12)
[2017-08-26] MEDS ORDERED: NITROGLYCERIN INJ 5 ML ONE (08:12)
[2017-08-26] MEDS ORDERED: MIDAZOLAM HCL 2 MG/2 ML VIAL ONE (08:12)
[2017-08-26] MEDS ORDERED: HYDROCORTISONE SOD SUCCINATE 100 MG VIAL ONE (08:12)
[2017-08-26] MEDS ORDERED: diphenhydrAMINE HCL 50 MG/ML VIAL ONE (08:12)
[2017-08-26] MEDS ORDERED: HEPARIN SODIUM - IV 10,000 UNITS/10 ML VIAL ONE (08:12)
[2017-08-26] MEDS ORDERED: ADENOSINE STRESS TEST INJ 90 MG/30 ML VIAL ONE (08:38)
--- NOTE | 2017-08-26 09:15 | CATHPROC ---
[employer] HIS Report Study Information Study Number Admission Scheduled Start Study Start [id number] Aug 25 2017 4:26PM 08/26/2017 Aug 26 2017 8:01AM [place] Service Cardiac Catheterization Admit Source Facility Department Emergency department [facility] - [facility] Cupping Machine Operator Physician and Clinical Staff Initial Elvis Rai Scalping Machine Operator Larisa Cano,LOLA Recorder Jazzmine Desai,RT(R) Scrub Alva Cuellar,RT(R) (BS) Procedures Performed Procedure Location (Site) Vessel Name Coronary Angiograms LCA Left Coronary Drug Eluting Inflatio OM1 Prox CIRC L Heart Cath PTCA OM1 Prox CIRC Wire insertion Radial (right) Radial Art. Equipment Time Infant Nanny Description Size Mfg Part Number Used/Scraped COPILOT VALVE, BLEEDBACK [id number] 08:35 [employer] Used CONTROL *[id number] TRANSDUCER, TRUWAVE [id number] 08:19 CAZARES ALEXANDER * Used W/STOCKCOCK *[id number] *[id number] *[id number] 08:19 [email or web address] PACK, CCL CUSTOM * Used *[id number] 08:19 [email or web address] SUPPORT, ARTERIAL ADULT [id number] *[id number] Used [id number] 08:19 [employer] PACER PEN, SKIN DUAL W/ RULER * Used *[id number] 08:52 [employer] BALLOON, 2.0 X 12MM EUPHORA 12MM Used *[id number] 08:50 [employer] STENT, 2.0 18MM NELSON 2.0 X 18MM Used *[id number] 08:53 4Tech 30 JUSTO INDEFLATOR Used *[id number] BAND, RADIAL COMPRESSION TR [id number] 09:05 4Tech 24CM Used SHORT 24 *[id number] SHEATH, FR6 RADIAL PRELUDE 08:19 4Tech FR 6 [id number] Used EASE 11CM [id number] 08:19 [employer] WIRE, EXCHANGE 260CM 3MMJ 260CM Used *[id number] 08:19 [employer] OMNIPAQUE, 350 MG, 150ML 150ML [id number] Used [id number] 08:19 [employer] BL[employer]ET,WARM AIR CCL * Used *[id number] WIRE, RUNTHROUGH NS FLOPPY [id number] 08:47 [employer] 180CM Used .014 180CM *[id number] 08:35 [employer] PRIME WIRE, VERRATA 185CM 185CM Used *[id number] Equipment Model, Serial, Lot Number and Expiration Data Description Model Number Serial Number Lot Number Expiration Date PRIME WIRE, CARISSARATA 185CM 1948 [id number] 07-30-2020 STENT, 2.0 18MM NELSON [id number] 04-29-2019 History: Current Medications Medication Dosage/Unit Route Frequency Last Date/Time Taken HEPARIN ASA BRILLINTA Beta Payton History: Allergies Allergy Reaction Sulfa (Sulfonamide Antibiotics) Rash nitrofurantoin HIVES onion HIVES shellfish derived HIVES History: Risk Factors Family History of Hypertension Dyslipidemia Previous [place] Previous Heart Failure Premature CAD Yes No No No No Prior Valve Prior PCI Prior PCIDate Prior CABG Surgery No Yes 08/25/2017 No Cerebrovascular Peripheral Artery Chronic Lung On Dialysis Diabetes Disease Disease Disease No No No No No History: Symptoms/Diagnosis Selection Items Chest pain History: Stress Tests Stress or Imaging Studies Performed No History: Other Disease Selection Items HTN History: Other Current Smoker Method Yes Cigarettes Labs Hgb (g/dl) Hct (%) WBC (l/cumm) Platelets (thousands) 11.60-17.00 35.00-51.00 4.00-11.00 150.00-450.00 12.3 35.8 10.8 244 Glucose (mg/dl) BUN (mg/dl) Creatinine (mg/dl) BUN:Creatinine (1:x) 74.00-106.00 7.00-18.00 0.50-1.30 10.00-20.00 117 9 0.7 12.9 Na (meq/l) K (meq/l) 136.00-145.00 3.50-5.10 140 3.3 INR (PTT:PT) 0.90-1.10 1 CPK (u/l) CPK-MB (ng/ML) 26.00-308.00 0.50-3.60 1110 12.0 Medication Medication Total Dose (Bolus/Oral) Medication Total Dosage/Unit 1% XYLOCAINE 5 mL ASPIRIN 81 mg BRILINTA 90 mg FENTANYL 50 mcg HEPARIN 7000 units NTG (IC) 400 mcg VERSED 2 mg Medications (Bolus/Oral) Medication Time Given Dosage/Unit Administered By Reason ASPIRIN 08/26/2017 8:00:00 AM 81 mg Patient arrived on 81 mg ASPIRIN via Oral. BRILINTA 08/26/2017 8:00:00 AM 90 mg Patient arrived on 90 mg BRILINTA via Oral. VERSED 08/26/2017 8:17:54 AM 2 mg Larisa Cano 2 mg VERSED given in lab by Larisa Cano RN in Left Wrist via Peripheral IV. Ordered by [facility] reid Rich. FENTANYL 08/26/2017 8:18:05 AM 50 mcg Larisa Cano 50 mcg FENTANYL given in lab by Larisa Cano RN in Left Wrist via Peripheral IV. Ordered by Elvis Rich. 1% XYLOCAINE 08/26/2017 8:18:12 AM 5 mL Elvis Rich 5 mL 1% XYLOCAINE given in lab by Elvis Rich in Right Radial via Subcutaneous. NTG (IC) 08/26/2017 8:19:22 AM 200 mcg Elvis Rich 200 mcg NTG (IC) given in lab by Elvis Rich in Right Radial via Intra-arterial. HEPARIN 08/26/2017 8:29:31 AM 5000 units Larisa Cano 5000 units HEPARIN given in lab by Larisa Cano RN in Left Wrist via Peripheral IV. Ordered by Elvis Rivera. HEPARIN 08/26/2017 8:48:30 AM 2000 units Larisa Cano 2000 units HEPARIN given in lab by Larisa Cano RN in Left Wrist via Peripheral IV. Ordered by Elvis Rivera. NTG (IC) 08/26/2017 8:56:57 AM 200 mcg Elvis Rich 200 mcg NTG (IC) given in lab by Elvis Rich in Right Radial via Intra-coronary. Medication (Drip) Medication Time Given Dosage/Unit Concentration/Unit Diluent (ml) Solution IV Solutions 08/26/2017 8:05:16 AM 50 mL (IV) NaCl .9 IV Solutions given in lab by Larisa Cano RN in Left Wrist via Peripheral IV. Pump/Drip Flow usin g NaCl .9. Initial Case Assessment Cardiovascular HR Rhythm NIBP Chest Pain 96 tachy 151/92 4 Edema Present Skin color Skin None Normal Warm Dry Circulatory - Right Pulses Dorsalis Pedis Femoral Radial 2 2 2 Scale (0,1,2,3,4,d) Scale (0,1,2,3,4,d) Neurological State Oriented to time-place- Alert Moves all extremities person Respiration - General Respiration Rate SpO2 (%) (B/min) 17 99 Chronological Log Time Study Chronological Log 8:00:00 Patient arrived on 81 mg ASPIRIN via Oral. 8:00:00 Patient arrived on 90 mg BRILINTA via Oral. 8:05:03 Patient arrived via Bed. 8:05:04 Patient Name, D.O.B, / Armband Verified By R.N. 8:05:04 Consent signed by the physician and the patient and verified by the [facility] Cupping Machine Operator staff. 8:05:05 Pre-op and post- op instructions given; patient acknowledges understanding of instructions. 8:05:05 Verbal Stimulation=2 Physical Stimulation=2 Airway=2 Respiration=2 TOTAL=8. (0=absent, 1=li mited, 2=present) 8:05:06 Presedation assessment performed by [facility] Cupping Machine Operator RN. 8:05:07 Allens test performed on the right radial and ulnar artery. 8:05:11 Patient has been NPO for More than 6Hrs. 8:05:12 Skin Breakdown- none per pt 8:05:13 Patient Warmer Placed on the Table. 8:05:14 Karthik Prominences Protected 8:05:16 A # 20 IV was noted in the Wrist (left). Grade = 0 8:05:16 A # 20 IV was noted in the Wrist (right). Grade = 0 8:05:16 IV Solutions given in lab by Larisa Cano, RN in Left Wrist via Peripheral IV. Pump/Drip Flow using NaCl .9. 8:05:17 History and physical on the chart or being dictated. Assessment: Initial Case, HR=96 BPM, Rhythm=tachy, TXZC=376/92 mmhg, Chest Pain=4, Edema=None, Color=Normal, Skin = Warm, Dry 8:05:18 Right Pulses: Devon Ped=2, Femoral=2, Radial=2 Neurological: State=Alert, Ox3, AVALOS Respiration: Resp=17 B/min, SpO2=99 % Time Out. Correct patient, correct procedure, correct physician, power injector not loaded with contrast with surgical 8:16:30 team present. Time Out Concurred by MD and individual staff in procedure. 8:16:55 Case Start 8:17:54 2 mg VERSED given in lab by Larisa Cano RN in Left Wrist via Peripheral IV. Ordered by Elvis Rich. 8:18:05 50 mcg FENTANYL given in lab by Larisa Cano RN in Left Wrist via Peripheral IV. Ordered by Elvis Rich. 8:18:12 5 mL 1% XYLOCAINE given in lab by Elvis Rich in Right Radial via Subcutaneous. Vitals capture started with the following parameters, Patient=Adult, Interval=5 min, Initial Pre foytk=916 mmHg, 8:18:24 Deflation Rate=5 mmHg, Cuff placed on Unknown 8:18:27 Pressure channel 1 zeroed. 8:18:46 Access site was Right Radial Artery. A SHEATH, FR6 RADIAL PRELUDE EASE 11CM FR 6 was advanced into the Radial (right) using the Mg burton 8:19:00 technique. 8:19:22 200 mcg NTG (IC) given in lab by Elvis Rich in Right Radial via Intra-arterial. 8:19:32 HR=96 bpm, AYSK=997/92 mmhg, GbN7=881.0 %, Resp=19 B/min A JL 3.5 INFINITI CATHETER FR 5 was advanced over a wire. OMNIPAQUE, 350 MG, 150ML 150ML was use d for 8:19:49 injections. 8:20:46 The LCA was injected and visualized at various angles. OMNIPAQUE, 350 MG, 150ML 150ML used. Recorded Pressure: Ao, HR=91, Condition=Condition 1 8:20:57 (Aorta) Ao 149/93/117 8:24:02 HR=91 bpm, VKXT=147/84 mmhg, SpO2=92.0 %, Resp=16 B/min 8:24:38 Reference ECG taken 8:29:04 HR=77 bpm, ANHY=804/71 mmhg, SpO2=95.0 %, Resp=15 B/min 8:29:31 5000 units HEPARIN given in lab by Larisa Cano RN in Left Wrist via Peripheral IV. Orde red by Elvis Rcih. 8:33:24 Pressure channel 1 zeroed. 8:33:58 HR=83 bpm, OKGV=511/70 mmhg, SpO2=95.0 %, Resp=14 B/min 8:35:00 A PRIME WIRE, VERRATA 185CM 185CM was inserted via Radial (right). 8:36:02 Flow Wire was was placed in the CIRC Mid. The IFR measures 0.89 Percent. 8:38:57 HR=86 bpm, TJHW=030/77 mmhg, SpO2=97 %, Resp=15 B/min 8:44:01 HR=85 bpm, ZPHF=762/69 mmhg, SpO2=98.0 %, Resp=14 B/min 8:44:11 The PRIME WIRE, VERRATA 185CM 185CM was removed. 8:45:34 Activated Clotting Time Drawn After removing the current catheter a XB 3.5 GUIDE CATHETER FR 6 was advanced over a WIRE, EXCHA NGE 260CM 8:46:03 3MMJ 260CM. 8:47:44 A WIRE, RUNTHROUGH NS FLOPPY .014 180CM 180CM was inserted via Radial (right). 8:48:30 2000 units HEPARIN given in lab by Larisa Cano RN in Left Wrist via Peripheral IV. Orde red by Elvis Rich. 8:49:00 HR=84 bpm, IHVL=677/84 mmhg, SpO2=99.0 %, Resp=17 B/min A STENT, 2.0 18MM NELSON 2.0 X 18MM was advanced through a XB 3.5 GUIDE CATHETER FR 6 over a WIRE, 8:50:44 RUNTHROUGH NS FLOPPY .014 180CM 180CM. 8:50:57 Stent not deployed. Stent removed and intact. A BALLOON, 2.0 X 12MM EUPHORA 12MM was inserted over WIRE, RUNTHROUGH NS FLOPPY .014 180CM 180CM via 8:52:12 the Radial (right). A BALLOON, 2.0 X 12MM EUPHORA 12MM over a WIRE, RUNTHROUGH NS FLOPPY .014 180CM 180CM in the OM1 8:52:19 Prox was inflated using a 30 JUSTO INDEFLATOR at 10 justo for 20 sec. A BALLOON, 2.0 X 12MM EUPHORA 12MM over a WIRE, RUNTHROUGH NS FLOPPY .014 180CM 180CM in the OM1 8:53:13 Prox was inflated using a 30 JUSTO INDEFLATOR at 10 justo for 15 sec. 8:53:41 ACT (Normal Range 90-180) = 254 8:53:58 Balloon Removed. 8:54:01 HR=86 bpm, BEFU=778/88 mmhg, UkN4=208.0 %, Resp=35 B/min A STENT, 2.0 18MM NELSON 2.0 X 18MM was advanced through a XB 3.5 GUIDE CATHETER FR 6 over a WIR E, 8:54:32 RUNTHROUGH NS FLOPPY .014 180CM 180CM. A STENT, 2.0 18MM NELSON 2.0 X 18MM was deployed using a 30 JUSTO INDEFLATOR at 14 atmospheres for 8 seconds in 8:55:24 the OM1 Prox. 8:56:39 Delivery device removed 8:56:57 200 mcg NTG (IC) given in lab by Elvis Rich in Right Radial via Intra-coronary. 8:57:34 Wire removed 8:57:36 Catheter was removed 8:57:45 Case End 8:59:04 HR=97 bpm, MMMI=382/83 mmhg, SpO2=99.0 %, Resp=12 B/min 9:04:03 HR=88 bpm, AEYS=344/81 mmhg, SpO2=96.0 %, Resp=12 B/min Radial Compression Device Used. 19 mLs of air placed in BAND, RADIAL COMPRESSION TR SHORT 24 2 4CM. Affected 9:04:22 hand 95 % O2 saturation. 9:04:45 No case complications noted. 9:04:47 Cine recording checked. 9:04:53 Bedside Report will be given. 9:08:15 Implantable Device card placed in patient's chart. 9:08:25 A Left Heart Cath was performed. 9:09:04 HR=88 bpm, WDUU=680/79 mmhg, Resp=24 B/min 9:13:45 Vitals capture stopped. 9:15:00 Patient moved to [facility] End Study - Contrast Media Used In Study Contrast Total Opened (mL) Total Used (mL) Total Wasted (mL) Omnipaque 170 170 0 End Study - Maximum Contrast Load Max Contrast Load (mL) 403.6 End Study - Radiation Exposure Fluoro Time (minutes) 4.2 End Study - Patient Disposition Complications Transferred To Interventional Outcome No Telemetry Bed successful
--- NOTE | 2017-08-26 09:26 | PD.CARD.PN ---
Subjective Subjective Remarks recurrent chest pain on and off last night Objective Medications Current Medications Medications (Trade) Dose Ordered Sig/Luisa Route Start Time Stop Time Status Last Admin (NS Flush) 2 ml UNSCH PRN IVF 08/25/17 16:30 (Restoril) 15 mg HS PRN PO 08/25/17 21:00 (Zofran Inj) 4 mg Q6H PRN IVP 08/25/17 17:15 08/26/17 02:07 (Aspirin Chew) 81 mg DAILY PO 08/26/17 09:00 08/26/17 08:00 (Brilinta) 90 mg BID PO 08/26/17 09:00 08/26/17 08:01 (Xylocaine 2% Jelly) 1 applic UNSCH X1 PRN TOP 08/25/17 17:15 08/26/17 17:14 (Lopressor) 12.5 mg BID PO 08/25/17 21:00 08/26/17 08:00 (Lipitor) 40 mg HS PO 08/25/17 21:00 08/25/17 21:14 (Pill Splitter) 1 ea UNSCH PRN OTHER 08/25/17 17:15 (Apresoline) 25 mg Q8HR PRN PO 08/25/17 22:00 (Prinivil) 10 mg DAILY PO 08/25/17 17:15 08/26/17 08:00 (Catapres) 0.1 mg Q6H PRN PO 08/25/17 17:15 08/26/17 02:07 (ZyrTEC) 10 mg HS PO 08/25/17 21:00 08/25/17 21:14 (Synthroid) 100 mcg DAILY@0600 PO 08/26/17 06:00 (Nitrostat Sl) 0.4 mg UNSCH PRN SL 08/26/17 05:45 08/26/17 02:43 (Imdur) 30 mg DAILY@07 PO 08/27/17 07:00 Vital Signs / I&O Vital Signs Date Time Temp Pulse Resp B/P (MAP) Pulse Ox O2 Delivery O2 Flow Rate FiO2 08/26/17 06:32 79 08/26/17 05:00 75 08/26/17 04:00 76 08/26/17 03:31 98.4 76 18 126/79 (95) 97 08/26/17 03:00 73 08/26/17 02:35 18 08/26/17 02:07 98.1 85 20 170/119 (136) 98 08/26/17 02:00 80 08/26/17 01:00 80 08/26/17 00:39 82 08/25/17 23:30 98.0 77 18 130/88 (102) 97 08/25/17 23:00 81 08/25/17 22:00 82 08/25/17 21:00 84 08/25/17 20:00 86 08/25/17 19:28 97.6 87 19 135/95 (108) 99 08/25/17 19:00 84 08/25/17 18:33 16 08/25/17 18:06 98.0 87 16 147/101 (116) 98 08/25/17 18:06 86 08/25/17 16:32 17 08/25/17 16:30 97.8 82 16 180/101 (127) 99 08/25/17 16:26 100 2.00 08/25/17 16:20 100 Nasal Cannula 2.00 08/25/17 16:17 96 18 187/113 (137) 98 Nasal Cannula 2.00 198/116 (143) 08/25/17 16:17 98 Nasal Cannula 2.00 08/25/17 16:17 18 98 Nasal Cannula 2.00 08/25/17 16:07 97.8 97 18 187/113 (137) 98 08/25/17 16:07 96 18 98 Room Air I/O 08/25/17 08/25/17 08/25/17 08/26/17 08/26/17 08/26/17 07:00 15:00 23:00 07:00 15:00 23:00 Intake Total 250 ml 240 ml Balance 250 ml 240 ml Intake Oral 240 ml IV Total 250 ml # Voids 3 # Bowel Movements 0 Physical Exam GENERAL: SKIN: Warm and dry. HEAD: Normocephalic. EYES: No scleral icterus. No injection or drainage. NECK: Supple, trachea midline. No JVD or lymphadenopathy. CARDIOVASCULAR: Regular rate and rhythm without murmurs, gallops, or rubs. RESPIRATORY: Breath sounds equal bilaterally. No accessory muscle use. GASTROINTESTINAL: Abdomen soft, non-tender, nondistended. MUSCULOSKELETAL: No cyanosis, or edema. BACK: Nontender without obvious deformity. No CVA tenderness. Laboratory Laboratory Tests Test 08/25/17 16:20 08/26/17 03:44 White Blood Count 10.0 TH/MM3 10.8 TH/MM3 Red Blood Count 4.77 MIL/MM3 4.10 MIL/MM3 Hemoglobin 14.2 GM/DL 12.3 GM/DL Bedside Hemoglobin 13.3 G/DL Hematocrit 41.5 % 35.8 % Bedside Hematocrit 39.0 % Mean Corpuscular Volume 87.0 FL 87.2 FL Mean Corpuscular Hemoglobin 29.7 PG 30.1 PG Mean Corpuscular Hemoglobin Concent 34.1 % 34.5 % Red Cell Distribution Width 12.7 % 12.6 % Platelet Count 313 TH/MM3 244 TH/MM3 Mean Platelet Volume 8.2 FL 8.8 FL Neutrophils (%) (Auto) 58.2 % 65.7 % Lymphocytes (%) (Auto) 30.1 % 23.8 % Monocytes (%) (Auto) 8.3 % 8.8 % Eosinophils (%) (Auto) 3.1 % 1.1 % Basophils (%) (Auto) 0.3 % 0.6 % Neutrophils # (Auto) 5.8 TH/MM3 7.1 TH/MM3 Lymphocytes # (Auto) 3.0 TH/MM3 2.6 TH/MM3 Monocytes # (Auto) 0.8 TH/MM3 1.0 TH/MM3 Eosinophils # (Auto) 0.3 TH/MM3 0.1 TH/MM3 Basophils # (Auto) 0.0 TH/MM3 0.1 TH/MM3 CBC Comment DIFF FINAL DIFF FINAL Differential Comment Prothrombin Time 10.7 SEC Prothromb Time International Ratio 1.1 RATIO Activated Partial Thromboplast Time 24.3 SEC Bedside Sodium 137 MMOL/L Blood Urea Nitrogen 10 MG/DL 9 MG/DL Creatinine 0.93 MG/DL 0.69 MG/DL Random Glucose 160 MG/DL 117 MG/DL Calcium Level 9.3 MG/DL 8.8 MG/DL Magnesium Level 2.4 MG/DL Sodium Level 138 MEQ/L 140 MEQ/L Potassium Level 3.3 MEQ/L 3.3 MEQ/L Chloride Level 106 MEQ/L 107 MEQ/L Carbon Dioxide Level 20.6 MEQ/L 23.2 MEQ/L Bedside Potassium 3.3 MMOL/L Bedside Chloride 105 MMOL/L Anion Gap 11 MEQ/L 10 MEQ/L Bedside Blood Urea Nitrogen 11 MG/DL Bedside Creatinine 0.9 MG/DL Estimat Glomerular Filtration Rate 62 ML/MIN 88 ML/MIN Bedside Glucose 163 MG/DL Total Creatine Kinase 136 U/L 1110 U/L Creatine Kinase MB 4.3 NG/ML 135.9 NG/ML Troponin I 0.28 NG/ML Creatine Kinase MB % 12.2 % Triglycerides Level 185 MG/DL Cholesterol Level 244 MG/DL LDL Cholesterol 170 MG/DL HDL Cholesterol 36.6 MG/DL Cholesterol/HDL Ratio 6.66 RATIO Imaging Last 24 hours Impressions Chest X-Ray 08/25/17 1616 Signed Impressions: Service Date/Time: July 16:22 - CONCLUSION: Probable left basilar atelectasis. Sunny Delatorre MD Assessment and Plan Assessment and Plan STEMI - PCI LAD ESPERANZA. residual OM disease. recurrent chest pain symptoms. ASA and brillinta EKG no ST elevation. unlikely stent thrombosis. given recurrent symptoms, plan for repeat LHC to confirm LAD stents patent. consider staged intervention of OM if LAD patent given recurrent suggestive anginal symptoms 2d echo BB statin Hilario,Elvis Cevallos MD Aug 26, 2017 09:26
--- NOTE | 2017-08-26 09:47 | MA ---
cc: Elvis Rich MD DATE: 08/26/2017 INDICATION: Unstable angina. PROCEDURES PERFORMED: 1. Fluoroscopy with interpretation. 2. Coronary angiography. 3. Pressure derived fractional flow reserve measurement of the first obtuse marginal branch. 4. Percutaneous intervention with drug-eluting stent to the proximal first obtuse marginal branch. METHOD: Risks, benefits and alternatives were discussed with the patient. The patient understood and consented to the procedure. The patient was brought to the catheterization lab, placed on the catheterization table. The right wrist were prepped and draped in sterile fashion. The right wrist was anesthetized with 2% lidocaine. The right radial artery was cannulated and a 6-Urdu, 7 cm sheath was placed without difficulty. CORONARY ANGIOGRAPHY: 1. Left main coronary artery is angiographically normal. 2. Left anterior descending coronary has stents present in the proximal segment, extending into the mid-segment which are widely patent. 3. The left circumflex coronary has what appears to be 75% stenosis in the proximal segment. It is quite hazy. 4. Right coronary was not visualized given recent diagnostic angiogram. PERCUTANEOUS INTERVENTION: Given the patient's ongoing chest pain symptoms, we elected to proceed with pressure derived wire fractional flow reserve measurement of the first obtuse marginal branch to determine hemodynamic significance. A 0.014 inch pressure wire was then advanced across the obtuse marginal branch. IFR was performed at 0.89 which does meet hemodynamic significance. Given her ongoing symptoms and positive IFR, we elected to proceed with percutaneous intervention. PERCUTANEOUS INTERVENTION: Heparin was administered throughout the entire procedure. The patient has been maintained on Brilinta, which was confirmed this morning. A 6-Urdu XB 3.5 guide catheter was advanced into the left main. The 180 cm Terumo Runthrough wire was navigated down the distal obtuse marginal branch. We were unable to pass the 2.25 x 18 mm stent due to calcification and some resistance. The lesion was then predilated with a 2.0 x 12 mm balloon. Repeat angiography still showed residual stenosis. The 2.25 x 18 mm RX Resolute Julio César stent was then advanced to the proximal segment and deployed. Repeat angiography showed no residual stenosis, SHAHBAZ 3 flow. Wires were removed, guide catheter removed, HemoBand applied. CONCLUSIONS: 1. Severe first obtuse marginal branch confirmed by hemodynamic significance with positive pressure derived fractional flow reserve measurement. 2. Successful percutaneous intervention with drug-eluting stent to the proximal first obtuse marginal branch. PLAN: The patient will be continued on aggressive medical management with Brilinta. We will monitor her here today. Hopefully, if she does well, she can be discharged tomorrow. MD CHRISTINA Clemons/SB , 09:03 AM , 09:46 AM
[2017-08-26] MEDS ORDERED: IOHEXOL 350 MG/ML 100 ML BTL (for Cath Lab) OTHER ONE (10:22)
--- NOTE | 2017-08-26 13:16 | EKG ---
Date Performed: 08/25/2017 Time Performed: 16:14:57 PTAGE: 57 years EKG: Sinus rhythm WITH SINUS ARRHYTHMIA POSSIBLE LEFT ATRIAL ENLARGEMENT ST ELEVATION, CONSIDER ANTERIOR INJURY ACU TE UT Compared to PREVIOUS TRACING ST segment elevation and acute anterior UT are new PREVIOUS TRACIN DOCTOR: Duc Betancourt Interpretating Date/Time 08/26/2017 13:15:20
[2017-08-26] MEDS ORDERED: METO25TA3 PO (13:19)
[2017-08-26] MEDS ORDERED: ISOS30TA3 PO (13:19)
[2017-08-26] MEDS ORDERED: ATOR40TA16 PO (13:19)
[2017-08-26] MEDS ORDERED: LISI10TA3 PO (13:19)
[2017-08-26] MEDS ORDERED: BRIL90TA PO (13:19)
[2017-08-26] MEDS ORDERED: ASPI81TA23 PO (13:20)
--- NOTE | 2017-08-26 13:41 | EKG ---
Date Performed: 08/26/2017 Time Performed: 07:53:54 PTAGE: 57 years EKG: Sinus rhythm Possible anterior infarct - age undetermined Inferior/lateral ST-T changes may be due to myocardial ischemia Abnormal ECG PREVIOUS TRACING : 08/26/2017 04.29 Since the previous tracing, no significant change noted DOCTOR: Duc Betancourt Interpretating Date/Time 08/26/2017 13:40:46
[2017-08-26] MEDS ORDERED: oxyCODONE/ACETAMINOPHEN 5 MG/325 MG TAB PO PRN (16:30)
[2017-08-26] MEDS ORDERED: MORPHINE SULFATE 4 MG/ML INJ IV PUSH PRN (16:30)
--- NOTE | 2017-08-26 16:51 | ECHRPT ---
Indication: CHEST PAIN CONCLUSIONS Normal left ventricular size. Mild concentric left ventricular hypertrophy. The left ventricular systolic function is mildly reduced with an estimated ejection fraction in the range of 45- 50%. Anterior, anterolateral, and apical hypokinesis. The left atrial size is mildly dilated. No atrial level shunt is demonstrated by color flow Doppler interrogation. There is trace tricuspid valve regurgitation. BP: / HR: Rhythm: Sinus MEASUREMENTS (Male / Female) Normal Values Technical Quality:Fair 2D ECHO LV Diastolic Diameter PLAX 4.4 cm 4.2 - 5.9 / 3.9 - 5.3 cm LV Systolic Diameter PLAX 2.9 cm IVS Diastolic Thickness 0.9 cm 0.6 - 1.0 / 0.6 - 0.9 cm LVPW Diastolic Thickness 0.9 cm 0.6 - 1.0 / 0.6 - 0.9 cm LV Relative Wall Thickness 0.4 RV Internal Dim ED PLAX 1.5 cm LVOT Diameter 1.6 cm Aortic Root Diameter 3.2 cm LA Systolic Diameter LX 2.0 cm 3.0 - 4.0 / 2.7 - 3.8 cm M-MODE AV Cusp Separation MM 1.8 cm DOPPLER AV Peak Velocity 102.0 cm/s AV Peak Gradient 4.2 mmHg AV Mean Gradient 2.0 mmHg AV Velocity Time Integral 16.9 cm LVOT Peak Velocity 60.2 cm/s LVOT Peak Gradient 1.4 mmHg LVOT Velocity Time Integral 10.3 cm AV Area Cont Eq vti 1.2 cm AV Area Cont Eq pk 1.2 cm Mitral E Point Velocity 79.5 cm/s Mitral A Point Velocity 102.0 cm/s Mitral E to A Ratio 0.8 LV E' Lateral Velocity 5.0 cm/s Mitral E to LV E' Lateral Ratio 16.0 LV E' Septal Velocity 7.0 cm/s Mitral E to LV E' Septal Ratio 11.3 PV Peak Velocity 84.2 cm/s PV Peak Gradient 2.8 mmHg FINDINGS LEFT VENTRICLE Normal left ventricular size. Mild concentric left ventricular hypertrophy. The left ventricular systolic function is mildly reduced with an estimated ejection fraction in the range of 45- 50%. Anterior, anterolateral, and apical hypokinesis. RIGHT VENTRICLE Normal right ventricular size and systolic function. LEFT ATRIUM The left atrial size is mildly dilated. RIGHT ATRIUM The right atrial size is normal. ATRIAL SEPTUM No atrial level shunt is demonstrated by color flow Doppler interrogation. AORTA The aortic root and proximal ascending aorta are normal in size on limited imaging. MITRAL VALVE Structurally normal mitral valve. No mitral valve stenosis or regurgitation. AORTIC VALVE Trileaflet aortic valve. No aortic valve stenosis or regurgitation. TRICUSPID VALVE There is trace tricuspid valve regurgitation. PULMONARY VALVE No pulmonary valve regurgitation or stenosis. VESSELS The inferior vena cava is normal in size. PERICARDIUM No pericardial effusion. Elvis Rich MD, FACC (Electronically Signed) Final Date:26 August 2017 16:50
[2017-08-26] MEDS: ACETAMINOPHEN 325 MG TAB PO PRN (17:28)
[2017-08-26] MEDS: CETIRIZINE HCL 10 MG TAB PO SCH (21:24)
[2017-08-26] MEDS: ATORVASTATIN 40 MG TAB PO SCH (21:25)
--- NOTE | 2017-08-26 23:49 | EKG ---
Date Performed: 08/26/2017 Time Performed: 01:14:38 PTAGE: 57 years EKG: Sinus rhythm Extensive ST-T changes may be due to myocardial ischemia Abnormal ECG PREVIOUS TRACING : 08/25/2017 16.14 Compared to previous tracing, evolution of anterior myocar dial infarction DOCTOR: Jorge Muhammad Interpretating Date/Time 08/26/2017 23:49:11
--- NOTE | 2017-08-26 23:49 | EKG ---
Date Performed: 08/26/2017 Time Performed: 04:29:08 PTAGE: 57 years EKG: Sinus rhythm Extensive ST-T changes may be due to myocardial ischemia Abnormal ECG PREVIOUS TRACING : 08/26/2017 01.14 Since the previous tracing, no significant change noted DOCTOR: Jorge Muhammad Interpretating Date/Time 08/26/2017 23:48:21
[2017-08-27] VITALS (20 sets, daily range): BP systolic 85–143; BP diastolic 53–96; PULSE 90–114; RESP 16–18; TEMP 97.6–97.8; O2SAT 96–97
[2017-08-27] MEDS: cloNIDine HCL 0.1 MG TAB PO PRN (03:49)
[2017-08-27] MEDS: ACETAMINOPHEN 325 MG TAB PO PRN (03:49)
[2017-08-27 04:22] LABS: HEMATOCRIT 37.7 % (35.0-46.0); HEMOGLOBIN 13.1 GM/DL (11.6-15.3); MEAN CELL VOLUME 86.3 FL (80.0-100.0); MEAN CORPUSCULAR HGB CONC 34.8 % (32.0-36.0); MEAN PLATELET VOLUME 8.4 FL (7.0-11.0); PLATELET COUNT 221 TH/MM3 (150-450); RED BLOOD COUNT 4.37 MIL/MM3 (4.00-5.30); RED CELL DISTRIBUTION WIDTH 12.8 % (11.6-17.2); WHITE BLOOD COUNT 10.6 TH/MM3 (4.0-11.0)
[2017-08-27 04:44] LABS: BICARBONATE 23.9 MEQ/L (21.0-32.0); CALCIUM 8.7 MG/DL (8.5-10.1); CREATININE 0.67 MG/DL (0.50-1.00)
[2017-08-27] MEDS ORDERED: ISOSORBIDE MONONITRATE 30 MG CR TAB (IMDUR) PO SCH (07:00)
[2017-08-27] MEDS ORDERED: POTASSIUM CHLORIDE 20 MEQ CONTROLLED RELEASE TAB PO STA (07:48)
--- NOTE | 2017-08-27 08:06 | PD.CARD.PN ---
Subjective Subjective Remarks feeling well. denies chest pain or sob. Objective Medications Current Medications Medications (Trade) Dose Ordered Sig/Luisa Route Start Time Stop Time Status Last Admin (NS Flush) 2 ml UNSCH PRN IVF 08/25/17 16:30 08/26/17 21:28 (Restoril) 15 mg HS PRN PO 08/25/17 21:00 (Zofran Inj) 4 mg Q6H PRN IVP 08/25/17 17:15 08/26/17 02:07 (Aspirin Chew) 81 mg DAILY PO 08/26/17 09:00 08/26/17 08:00 (Brilinta) 90 mg BID PO 08/26/17 09:00 08/26/17 21:25 (Lopressor) 12.5 mg BID PO 08/25/17 21:00 08/26/17 21:25 (Lipitor) 40 mg HS PO 08/25/17 21:00 08/26/17 21:25 (Pill Splitter) 1 ea UNSCH PRN OTHER 08/25/17 17:15 (Apresoline) 25 mg Q8HR PRN PO 08/25/17 22:00 (Prinivil) 10 mg DAILY PO 08/25/17 17:15 08/26/17 08:00 (Catapres) 0.1 mg Q6H PRN PO 08/25/17 17:15 08/27/17 03:49 (ZyrTEC) 10 mg HS PO 08/25/17 21:00 08/26/17 21:24 (Synthroid) 100 mcg DAILY@0600 PO 08/26/17 06:00 08/27/17 06:12 (Nitrostat Sl) 0.4 mg UNSCH PRN SL 08/26/17 05:45 08/26/17 02:43 (Imdur) 30 mg DAILY@07 PO 08/27/17 07:00 08/27/17 06:12 (Tylenol) 325 mg Q4H PRN PO 08/26/17 16:30 08/27/17 03:49 (Percocet 5-325 Mg) 1 tab Q4H PRN PO 08/26/17 16:30 (Morphine Inj) 2 mg Q30M PRN IV PUSH 08/26/17 16:30 Vital Signs / I&O Vital Signs Date Time Temp Pulse Resp B/P (MAP) Pulse Ox O2 Delivery O2 Flow Rate FiO2 08/27/17 07:48 97.6 105 18 85/60 (68) 97 08/27/17 06:14 100/68 (79) 08/27/17 06:00 92 08/27/17 05:00 92 08/27/17 04:00 100 08/27/17 03:50 107 16 143/96 (112) 97 08/27/17 03:00 92 08/27/17 02:00 98 08/27/17 01:00 90 08/27/17 00:00 96 08/26/17 23:00 92 16 146/98 (114) 98 08/26/17 23:00 89 08/26/17 22:00 90 08/26/17 21:00 92 08/26/17 20:30 98.4 103 16 137/86 (103) 97 08/26/17 20:00 102 08/26/17 19:00 107 08/26/17 18:04 89 08/26/17 17:39 08/26/17 17:09 105 08/26/17 16:00 92 08/26/17 15:18 98.0 101 14 127/89 (102) 98 08/26/17 15:00 90 08/26/17 14:00 90 08/26/17 13:00 88 08/26/17 12:00 94 08/26/17 11:56 117/81 (93) 08/26/17 11:31 116/81 (93) 08/26/17 11:18 97.6 80 14 112/76 (88) 95 08/26/17 11:11 97.9 85 14 112/76 (88) 95 08/26/17 11:00 80 08/26/17 10:00 82 I/O 08/26/17 08/26/17 08/26/17 08/27/17 08/27/17 08/27/17 07:00 15:00 23:00 07:00 15:00 23:00 Intake Total 240 ml 400 ml 480 ml Output Total 1350 ml 800 ml Balance 240 ml 400 ml -1350 ml -320 ml Intake Oral 240 ml 480 ml IV Total 400 ml Output Urine Total 1350 ml 800 ml # Voids 3 # Bowel Movements 0 Physical Exam GENERAL: SKIN: Warm and dry. HEAD: Atraumatic. Normocephalic. EYES: Pupils equal and round. No scleral icterus. ENT: No nasal bleeding or discharge NECK: Trachea midline. No JVD. CARDIOVASCULAR: Regular rate and rhythm. no murmurs RESPIRATORY: No accessory muscle use. Clear to auscultation. Breath sounds equal bilaterally. GASTROINTESTINAL: Abdomen soft, non-tender, nondistended. Hepatic and splenic margins not palpable. MUSCULOSKELETAL: Extremities without clubbing, cyanosis, or edema. No obvious deformities. NEUROLOGICAL: Awake and alert. No obvious cranial nerve deficits.. Normal speech. PSYCHIATRIC: Appropriate mood and affect; insight and judgment normal. Laboratory Laboratory Tests Test 08/27/17 03:38 White Blood Count 10.6 TH/MM3 Red Blood Count 4.37 MIL/MM3 Hemoglobin 13.1 GM/DL Hematocrit 37.7 % Mean Corpuscular Volume 86.3 FL Mean Corpuscular Hemoglobin 30.0 PG Mean Corpuscular Hemoglobin Concent 34.8 % Red Cell Distribution Width 12.8 % Platelet Count 221 TH/MM3 Mean Platelet Volume 8.4 FL Blood Urea Nitrogen 7 MG/DL Creatinine 0.67 MG/DL Random Glucose 115 MG/DL Calcium Level 8.7 MG/DL Sodium Level 138 MEQ/L Potassium Level 3.3 MEQ/L Chloride Level 103 MEQ/L Carbon Dioxide Level 23.9 MEQ/L Anion Gap 11 MEQ/L Estimat Glomerular Filtration Rate 91 ML/MIN Total Creatine Kinase 416 U/L Creatine Kinase MB 27.6 NG/ML Creatine Kinase MB % 6.6 % Assessment and Plan Problem List: (1) STEMI (ST elevation myocardial infarction) ICD Codes: I21.3 - ST elevation (STEMI) myocardial infarction of unspecified site Status: Acute Code Status STEMI- PCI ESPERANZA LAD, recurrent chest pain with repeat [facility] ESPERANZA prox 1st obtuse marginal cont asa, Brilinta, statin, bb, Imdur add KCl 40mEq x 1 dose. follow up in outpatient in 1-2 weeks. ok for discharge Problem Qualifiers (1) STEMI (ST elevation myocardial infarction): Qualified Codes: I21.02 - ST elevation (STEMI) myocardial infarction involving left anterior descending coronary artery Ana Rojas Aug 27, 2017 08:06
[2017-08-27] MEDS: METOPROLOL TARTRATE 25 MG TAB PO SCH (09:34)
[2017-08-27] MEDS: TICAGRELOR 90 MG TAB PO SCH (09:34)
[2017-08-27] MEDS: LISINOPRIL 10 MG TAB PO SCH (09:35)
[2017-08-27] MEDS: ASPIRIN 81 MG CHEW TAB PO SCH (09:35)
== END 2017-08-27 16:07 | disposition home or self-care (01) | DRG 247 ==
LOC: NEPC 16:00 → NEDA 16:26 → HCIS 17:20
PROVIDERS: ADMIT Internal Medicine; ATTEND Internal Medicine
PROC: 027035Z Dilation of Coronary Artery, One Artery with Two Drug-eluting Intraluminal Devices, Percutaneous Approach (ICD-10-PCS; principal; 2017-08-25)
PROC: 4A023N7 Measurement of Cardiac Sampling and Pressure, Left Heart, Percutaneous Approach (ICD-10-PCS; 2017-08-25)
PROC: B2111ZZ Fluoroscopy of Multiple Coronary Arteries using Low Osmolar Contrast (ICD-10-PCS; 2017-08-25)
PROC: 027034Z Dilation of Coronary Artery, One Artery with Drug-eluting Intraluminal Device, Percutaneous Approach (ICD-10-PCS; 2017-08-26)
PROC: 4A023N7 Measurement of Cardiac Sampling and Pressure, Left Heart, Percutaneous Approach (ICD-10-PCS; 2017-08-26)
PROC: B2111ZZ Fluoroscopy of Multiple Coronary Arteries using Low Osmolar Contrast (ICD-10-PCS; 2017-08-26)
DX: I21.02 ST elevation (STEMI) myocardial infarction involving left anterior descending coronary artery (principal); I25.110 Atherosclerotic heart disease of native coronary artery with unstable angina pectoris; E03.9 Hypothyroidism, unspecified; E78.5 Hyperlipidemia, unspecified; F17.210 Nicotine dependence, cigarettes, uncomplicated; K21.9 Gastro-esophageal reflux disease without esophagitis; Z82.49 Family history of ischemic heart disease and other diseases of the circulatory system
CPT/HCPCS: 71045; 80048; 80061; 82550; 82552; 83735; 84484; 85002; 85025; 85027; 85610; 85730; 92928; 92941; 93005; 93306; 93454; 93571; 99152; 99153; C1725; C1769; C1874; C1887; C1893; C9460; J0153; J1200; J1644; J1720; J2250; J2270; J2405; J3010; J7050; Q9967